=== PATIENT | female | born 1995 | race American Indian/Alaskan Native ===

== ENCOUNTER 2016-10-30 09:31 | Emergency (ER) | payer BC ==
[2016-10-30 10:09] VITALS: BP 112/78; PULSE 80; RESP 20; TEMP 98; O2SAT 98
--- NOTE | 2016-10-30 10:23 | ED PDOC ---
Lower Extremity Pain/Injury Time Seen by Provider: 10/30/16 10:21 Chief Complaint (Nursing): Lower Extremity Problem/Injury Chief Complaint (Provider): foot injury History Per: Patient (21 y/o female here for evaluation of left toe pain involving ankle/knee after stubbing toe against object 2 days ago. Patient has h/o sickle cell anemia. Currently not on medications. Did not take otc.) Past Medical History Reviewed: Historical Data, Nursing Documentation, Vital Signs Vital Signs: Last Vital Signs Temp 98 F 10/30/16 10:07 Pulse 80 10/30/16 10:07 Resp 20 10/30/16 10:07 BP 112/78 10/30/16 10:07 Pulse Ox 98 10/30/16 10:07 - Family History Family History: States: No Known Family Hx - Home Medications Home Medications: Ambulatory Orders Medication Instructions Recorded Naproxen 1 tab PO Q12 PRN #14 tab 10/30/16 - Allergies Allergies/Adverse Reactions: Allergies Allergy/AdvReac Type Severity Reaction Status Date / Time No Known Allergies Allergy Verified 10/30/16 10:09 Review of Systems ROS Statement: Except As Marked, All Systems Reviewed And Found Negative Musculoskeletal: Positive for: Foot Pain Physical Exam - Reviewed Nursing Documentation Reviewed: Yes Vital Signs Reviewed: Yes - Physical Exam Appears: Positive for: Well, Non-toxic, No Acute Distress Head Exam: Positive for: ATRAUMATIC, NORMAL INSPECTION, NORMOCEPHALIC Skin: Positive for: Normal Color, Warm, DRY Eye Exam: Positive for: EOMI, Normal appearance, PERRL ENT: Positive for: Normal ENT Inspection Neck: Positive for: Normal, Painless ROM Cardiovascular/Chest: Positive for: Regular Rate, Rhythm Respiratory: Positive for: CNT, Normal Breath Sounds Gastrointestinal/Abdominal: Positive for: Normal Exam, Bowel Sounds, Soft Back: Positive for: Normal Inspection Extremity: Positive for: Normal ROM, Tenderness (tenderness along lateral aspect of foot/ankle. No obvious swelling/ecchymosis) Neurologic/Psych: Positive for: Alert, Oriented - ECG O2 Sat by Pulse Oximetry: 98 - Progress ED Course And Treament: Patient refused pain medications at this time. xry of foot: neg xry of ankle: neg xry of tib/fib: neg Disposition - Clinical Impression Clinical Impression: Foot injury - Patient ED Disposition Is Patient to be Admitted: No - Disposition Referrals: Podiatry Clinic [Outside] Disposition: Routine/Home Disposition Time: 11:26 Condition: FAIR Prescriptions: Naproxen 1 tab PO Q12 PRN #14 tab PRN Reason: Pain, Moderate (4-7) Instructions: Foot Contusion (ED) Forms: [facility] (Macedonian)
--- NOTE | 2016-10-30 13:47 | RAD ---
PROCEDURE: Left Ankle Radiographs. 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 Well wall was the closet 80s contract about PT L. Tolerance NG or its current HISTORY: ankle injury COMPARISON: None FINDINGS: BONES: Normal. No fracture. JOINTS: Normal. No osteoarthritis. Ankle mortise maintained. Talar dome intact SOFT TISSUES: Normal. OTHER FINDINGS: None. IMPRESSION: Normal left ankle radiographs.
--- NOTE | 2016-10-30 13:56 | RAD ---
PROCEDURE: Radiographs of the left tibia and fibula. HISTORY: leg pain COMPARISON: Correlation made with concurrent radiographs of the left ankle TECHNIQUE: Frontal and lateral views obtained. FINDINGS: BONES: No fracture or destructive lesion. JOINT SPACES: Unremarkable. OTHER FINDINGS: None. IMPRESSION: Unremarkable radiographs of the left tibia and fibula.
--- NOTE | 2016-10-30 13:58 | RAD ---
PROCEDURE: Left Foot Radiographs. HISTORY: injury COMPARISON: NoneCorrelation made with concurrent radiographs of the left ankle the. FINDINGS: BONES: Normal. No fracture. JOINTS: Mild hallux valgus deformity with slight prominence of the overlying medial soft tissues. SOFT TISSUES: Normal. OTHER FINDINGS: None. IMPRESSION: No obvious acute displaced fracture nor dislocation. If symptoms persist or occult fracture suspected clinically recommend repeat radiographs in 5-10 days as most fractures should become radiographically evident in this timeframe.
== END 2016-10-30 11:40 | disposition home or self-care (01) ==
LOC: H.ER 09:31
DX: S99.922A Unspecified injury of left foot, initial encounter (principal); W22.8XXA Striking against or struck by other objects, initial encounter; Y92.89 Other specified places as the place of occurrence of the external cause